=== PATIENT | female | born 1965 | race Caucasian/White ===

== ENCOUNTER 2023-04-13 08:24 | Emergency (ER) | payer OTHER, SELFPAY ==
[2023-04-13 08:49] LABS: Clarity Hazy (Clear)
[2023-04-13 08:50] LABS: Glucose, Urine (Dipstick) 500 mg/dL (Negative); Ketone, Urine Unable to Interpret mg/dL (Negative); Leukocyte Unable to Interpret (Negative); Nitrite Unable to Interpret (Negative); Protein, Urine (Dipstick) Unable to Interpret mg/dL (Neg-Trace)
[2023-04-13 08:51] LABS: Bilirubin Unable to Interpret (Negative); Urobilinogen UNABLE TO INTERPRET mg/dL (Less than 2)
[2023-04-13 08:52] LABS: Blood, Urine Negative (Negative)
[2023-04-13 09:00] LABS: Bacteria/HPF 1+ HPF (None Seen); CAUTI Indications for Culture Dysuria,urgency,freq; RBC/HPF 0-3 HPF (0-3); Squamous Epithelial 0-3 HPF (0-3); WBC/HPF Greater than 50 HPF (0-3)
[2023-04-13 09:01] LABS: Urine Culture Reflex Yes Yes
== END 2023-04-13 09:31 | disposition home or self-care (01) ==
LOC: MADERS 08:24
DX: N39.0 Urinary tract infection, site not specified (principal); E11.9 Type 2 diabetes mellitus without complications
CPT/HCPCS: 36416; 81001; 87077; 87086; 87186; 99283